=== PATIENT | male | born 1945 | race Hispanic/Latino ===

== ENCOUNTER 2019-01-04 09:16 | Emergency (ER) | payer SELFPAY ==
[~2019-01-04] VITALS: Ht 169.4 cm; Wt 75.0 kg
[~2019-01-04 09:16] MED LIST: BP MED
[2019-01-04] MEDS ORDERED: ATORVASTATIN CA80 MG PO (10:12)
[2019-01-04] MEDS ORDERED: LISINOP/HCTZ1 TA2 PO (10:12)
[2019-01-04] MEDS ORDERED: MEDDOSEPAK PO (10:52)
[2019-01-04] MEDS ORDERED: DICLOFENAC50 MG PO (10:52)
[2019-01-04 11:05] VITALS: BP 128/77
== END 2019-01-04 11:05 | disposition home or self-care (01) | DRG 556 ==
LOC: ED 09:16
DX: M25.531 Pain in right wrist (principal); I10 Essential (primary) hypertension

== ENCOUNTER 2019-04-18 17:22 | Emergency (ER) | payer MEDICARE ==
[~2019-04-18] VITALS: Ht 167.6 cm; Wt 86.0 kg
[~2019-04-18 17:22] MED LIST changes: +ATORVASTATIN CA80 MG PO; +DICLOFENAC50 MG PO; +LISINOP/HCTZ1 TA2 PO; +MEDDOSEPAK PO
[2019-04-18] MEDS ORDERED: KEFLEX500 M1 PO (18:24)
[2019-04-18 19:10] VITALS: BP 146/74
== END 2019-04-18 19:10 | disposition home or self-care (01) ==
LOC: ED 17:22
DX: L03.115 Cellulitis of right lower limb (principal); I10 Essential (primary) hypertension

== ENCOUNTER 2019-04-20 11:54 | Emergency (ER) | payer MEDICARE ==
[~2019-04-20] VITALS: Ht 167.6 cm; Wt 86.0 kg
[~2019-04-20 11:54] MED LIST changes: +KEFLEX500 M1 PO
[2019-04-20 13:03] VITALS: BP 127/75
== END 2019-04-20 13:03 | disposition home or self-care (01) ==
LOC: ED 11:54
DX: L03.115 Cellulitis of right lower limb (principal); I10 Essential (primary) hypertension

== ENCOUNTER 2021-12-06 15:42 | Inpatient (IN) | payer MEDICARE ==
[~2021-12-06] VITALS: Ht 167.6 cm; Wt 75.0 kg
[2021-12-06 16:02] VITALS: BP 121/69
[2021-12-06 16:38] LABS: HEMOGLOBIN 13.4 g/dl (14.0-18.0); IMMATURE GRANULOCYTES 1.3 % (0.0-5.0); MEAN CELL VOLUME 89.2 fL CALC (80.0-100.0); MEAN CORPUSCULAR HGB 28.5 pG CALC (26.0-32.0); MEAN CORPUSCULAR HGB CONC 31.9 g/dL CAL (32.0-36.0); NEUT# 20.08 thou/uL (1.82-7.42); RED BLOOD COUNT 4.71 mill/uL (4.70-6.10); RED CELL DISTRI WIDTH 15.4 % (11.5-15.5)
[2021-12-06 16:42] LABS: ALBUMIN 3.2 g/dL (3.2-5.0); BILIRUBIN, TOTAL 0.4 mg/dL (0.0-1.4); POTASSIUM 3.8 mmol/l (3.5-5.1); TOTAL PROTEIN 6.2 g/dL (6.3-8.2)
[2021-12-06 17:04] VITALS: BP 95/52
[2021-12-06 17:30] VITALS: BP 95/49
[2021-12-06 18:01] VITALS: BP 118/57
[2021-12-06 18:30] VITALS: BP 130/75
[2021-12-06 19:51] VITALS: BP 111/62
[2021-12-07 04:34] VITALS: BP 103/50
[2021-12-07 05:18] LABS: HEMATOCRIT 38.5 % (39.0-50.0); HEMOGLOBIN 12.1 g/dl (14.0-18.0); MEAN CELL VOLUME 91.9 fL CALC (80.0-100.0); MEAN CORPUSCULAR HGB 28.9 pG CALC (26.0-32.0); MEAN CORPUSCULAR HGB CONC 31.4 g/dL CAL (32.0-36.0); RED BLOOD COUNT 4.19 mill/uL (4.70-6.10); RED CELL DISTRI WIDTH 15.5 % (11.5-15.5)
[2021-12-07 05:36] LABS: CREATININE 1.4 mg/dL (0.7-1.3); MAGNESIUM 2.4 mg/dL (1.6-2.3); POTASSIUM 4.1 mmol/l (3.5-5.1)
[2021-12-07 07:09] VITALS: BP 119/57
[2021-12-07 19:00] VITALS: BP 143/84
[2021-12-08 04:00] VITALS: BP 155/87
[2021-12-08 04:19] VITALS: BP 155/87
[2021-12-08 05:07] LABS: HEMATOCRIT 40.4 % (39.0-50.0); HEMOGLOBIN 12.6 g/dl (14.0-18.0); IMMATURE GRANULOCYTES 1.4 % (0.0-5.0); MEAN CELL VOLUME 91.8 fL CALC (80.0-100.0); MEAN CORPUSCULAR HGB 28.6 pG CALC (26.0-32.0); MEAN CORPUSCULAR HGB CONC 31.2 g/dL CAL (32.0-36.0); NEUT# 14.92 thou/uL (1.82-7.42); RED BLOOD COUNT 4.4 mill/uL (4.70-6.10); RED CELL DISTRI WIDTH 15.5 % (11.5-15.5)
[2021-12-08 05:21] LABS: ALBUMIN 2.7 g/dL (3.2-5.0); ALKALINE PHOSPHATASE 88 u/l (38-126); ANION GAP 12 (6-22 (CALC)); BUN 34 mg/dL (8-23); BUN/CREATININE RATIO 31 (12-20 (CALC)); CARBON DIOXIDE 22 mmol/l (22-30); CHLORIDE 112 mmol/l (95-108); CREATININE 1.1 mg/dL (0.7-1.3); GFR > 60 ML/MIN (>=60 (CALC)); GFR FOR AFR.AMER. > 60 ML/MIN (>=60 (CALC)); MAGNESIUM 2.3 mg/dL (1.6-2.3); POTASSIUM 4.8 mmol/l (3.5-5.1); SGOT/AST 18 u/l (19-48); SODIUM 141 mmol/l (137-146); TOTAL PROTEIN 5.3 g/dL (6.3-8.2)
[2021-12-08 05:25] LABS: BILIRUBIN, TOTAL 0.2 mg/dL (0.0-1.4)
[2021-12-08 06:56] VITALS: BP 147/86
[2021-12-08 14:16] VITALS: BP 112/68
[2021-12-08 19:06] VITALS: BP 141/65
[2021-12-09 04:41] VITALS: BP 172/98
[2021-12-09 05:00] VITALS: BP 163/85
[2021-12-09 05:40] LABS: HEMATOCRIT 42.2 % (39.0-50.0); HEMOGLOBIN 13.2 g/dl (14.0-18.0); MEAN CELL VOLUME 91.5 fL CALC (80.0-100.0); MEAN CORPUSCULAR HGB 28.6 pG CALC (26.0-32.0); MEAN CORPUSCULAR HGB CONC 31.3 g/dL CAL (32.0-36.0); RED BLOOD COUNT 4.61 mill/uL (4.70-6.10); RED CELL DISTRI WIDTH 15.6 % (11.5-15.5)
[2021-12-09 06:07] LABS: ANION GAP 11 (6-22 (CALC)); BUN 30 mg/dL (8-23); BUN/CREATININE RATIO 28 (12-20 (CALC)); CARBON DIOXIDE 24 mmol/l (22-30); CHLORIDE 109 mmol/l (95-108); CREATININE 1.1 mg/dL (0.7-1.3); GFR > 60 ML/MIN (>=60 (CALC)); GFR FOR AFR.AMER. > 60 ML/MIN (>=60 (CALC)); MAGNESIUM 2.1 mg/dL (1.6-2.3); POTASSIUM 4.7 mmol/l (3.5-5.1); SODIUM 140 mmol/l (137-146)
[2021-12-09 06:24] VITALS: BP 151/80
[2021-12-09 16:44] VITALS: BP 174/81
[2021-12-09 19:23] VITALS: BP 149/78
[2021-12-10 04:22] VITALS: BP 158/77
[2021-12-10 05:35] LABS: HEMATOCRIT 45.2 % (39.0-50.0); MEAN CELL VOLUME 91.9 fL CALC (80.0-100.0); MEAN CORPUSCULAR HGB 28.5 pG CALC (26.0-32.0); RED BLOOD COUNT 4.92 mill/uL (4.70-6.10); RED CELL DISTRI WIDTH 15.3 % (11.5-15.5)
[2021-12-10 05:59] LABS: ANION GAP 11 (6-22 (CALC)); BUN 26 mg/dL (8-23); BUN/CREATININE RATIO 22 (12-20 (CALC)); CARBON DIOXIDE 28 mmol/l (22-30); CHLORIDE 103 mmol/l (95-108); CREATININE 1.2 mg/dL (0.7-1.3); GFR 59 ML/MIN (>=60 (CALC)); GFR FOR AFR.AMER. > 60 ML/MIN (>=60 (CALC)); MAGNESIUM 2.1 mg/dL (1.6-2.3); POTASSIUM 4.2 mmol/l (3.5-5.1); SODIUM 138 mmol/l (137-146)
[2021-12-10 06:26] VITALS: BP 148/78
[2021-12-10 08:00] VITALS: BP 148/78
[2021-12-10 09:17] LABS: HEMATOCRIT 45.1 % (39.0-50.0); HEMOGLOBIN 13.8 g/dl (14.0-18.0); IMMATURE GRANULOCYTES 4.2 % (0.0-5.0); MEAN CELL VOLUME 91.5 fL CALC (80.0-100.0); MEAN CORPUSCULAR HGB CONC 30.6 g/dL CAL (32.0-36.0); NEUT# 15.74 thou/uL (1.82-7.42); RED BLOOD COUNT 4.93 mill/uL (4.70-6.10); RED CELL DISTRI WIDTH 15.3 % (11.5-15.5)
[2021-12-10 14:47] VITALS: BP 126/72
[2021-12-10 16:00] VITALS: BP 126/72
[2021-12-10 19:22] VITALS: BP 148/91
[2021-12-11] VITALS (7 sets, daily range): BP systolic 111–148; BP diastolic 63–87
[2021-12-11 05:10] LABS: HEMATOCRIT 44.6 % (39.0-50.0); HEMOGLOBIN 13.8 g/dl (14.0-18.0); MEAN CELL VOLUME 91.8 fL CALC (80.0-100.0); MEAN CORPUSCULAR HGB 28.4 pG CALC (26.0-32.0); MEAN CORPUSCULAR HGB CONC 30.9 g/dL CAL (32.0-36.0); RED BLOOD COUNT 4.86 mill/uL (4.70-6.10); RED CELL DISTRI WIDTH 15.2 % (11.5-15.5)
[2021-12-11 05:33] LABS: BUN 24 mg/dL (8-23); BUN/CREATININE RATIO 23 (12-20 (CALC)); CARBON DIOXIDE 25 mmol/l (22-30); CHLORIDE 102 mmol/l (95-108); GFR > 60 ML/MIN (>=60 (CALC)); GFR FOR AFR.AMER. > 60 ML/MIN (>=60 (CALC)); MAGNESIUM 2.2 mg/dL (1.6-2.3); SODIUM 138 mmol/l (137-146)
[2021-12-11 05:36] LABS: ANION GAP 16 (6-22 (CALC)); POTASSIUM 4.6 mmol/l (3.5-5.1)
[2021-12-12 04:00] VITALS: BP 132/63
[2021-12-12 04:12] VITALS: BP 132/63
[2021-12-12 05:29] LABS: HEMATOCRIT 45.7 % (39.0-50.0); HEMOGLOBIN 14.1 g/dl (14.0-18.0); MEAN CELL VOLUME 93.3 fL CALC (80.0-100.0); MEAN CORPUSCULAR HGB 28.8 pG CALC (26.0-32.0); MEAN CORPUSCULAR HGB CONC 30.9 g/dL CAL (32.0-36.0); RED BLOOD COUNT 4.9 mill/uL (4.70-6.10); RED CELL DISTRI WIDTH 14.9 % (11.5-15.5)
[2021-12-12 05:39] LABS: ANION GAP 16 (6-22 (CALC)); BUN 29 mg/dL (8-23); BUN/CREATININE RATIO 25 (12-20 (CALC)); CARBON DIOXIDE 27 mmol/l (22-30); CHLORIDE 102 mmol/l (95-108); CREATININE 1.2 mg/dL (0.7-1.3); GFR 59 ML/MIN (>=60 (CALC)); GFR FOR AFR.AMER. > 60 ML/MIN (>=60 (CALC)); MAGNESIUM 2.4 mg/dL (1.6-2.3); POTASSIUM 4.7 mmol/l (3.5-5.1); SODIUM 140 mmol/l (137-146)
[2021-12-12 06:52] VITALS: BP 138/55
[2021-12-12 08:40] VITALS: BP 138/55
[2021-12-12 09:57] VITALS: BP 138/55
[2021-12-12] MEDS ORDERED: LEVAQUIN750 M1 PO (12:04)
[2021-12-12] MEDS ORDERED: LINEZOLID600 MG PO (12:04)
[2021-12-12] MEDS ORDERED: LORTAB 5/3255 MG PO (12:05)
[2021-12-12] MEDS ORDERED: SILVADENE1 % EX (12:05)
== END 2021-12-12 15:28 | disposition home health service (06) | DRG 603 ==
LOC: ED 15:42 → ED-I 17:10 → MS2 18:05 → ED 18:05 → MS2 12-09 07:38
PROVIDERS: Hospitalist; Nurse Practitioner; ADMIT Internal Medicine; ATTEND Internal Medicine
PROC: 3E02340 Introduction of Influenza Vaccine into Muscle, Percutaneous Approach (ICD-10-PCS; principal; 2021-12-10)
PROC: 0HDKXZZ Extraction of Right Lower Leg Skin, External Approach (ICD-10-PCS; 2021-12-10)
DX: L03.115 Cellulitis of right lower limb (principal); N17.9 Acute kidney failure, unspecified; T24.201A Burn of second degree of unspecified site of right lower limb, except ankle and foot, initial encounter; I10 Essential (primary) hypertension; L02.425 Furuncle of right lower limb; R73.9 Hyperglycemia, unspecified; E78.5 Hyperlipidemia, unspecified; X12.XXXA Contact with other hot fluids, initial encounter; Z91.14 Patient's other noncompliance with medication regimen; Z23 Encounter for immunization; Z20.822 Contact with and (suspected) exposure to COVID-19
CPT/HCPCS: J0692; Q3014

== ENCOUNTER 2021-12-31 13:01 | Inpatient (IN) | payer MEDICARE ==
[~2021-12-31] VITALS: Ht 167.6 cm; Wt 81.8 kg
[2021-12-31] VITALS (8 sets, daily range): BP systolic 130–163; BP diastolic 69–125
[~2021-12-31 13:01] MED LIST changes: +LEVAQUIN750 M1 PO; +LINEZOLID600 MG PO; +LORTAB 5/3255 MG PO; +SILVADENE1 % EX
[2021-12-31 14:16] LABS: ALKALINE PHOSPHATASE 107 u/l (38-126); ANION GAP 15 (6-22 (CALC)); BUN 44 mg/dL (8-23); BUN/CREATININE RATIO 35 (12-20 (CALC)); CARBON DIOXIDE 22 mmol/l (22-30); CHLORIDE 107 mmol/l (95-108); CREATININE 1.2 mg/dL (0.7-1.3); GFR FOR AFR.AMER. > 60 ML/MIN (>=60 (CALC)); GFR OTHER RACES 59 ML/MIN (>=60 (CALC)); POTASSIUM 4.4 mmol/l (3.5-5.1); SODIUM 140 mmol/l (137-146)
[2021-12-31 14:17] LABS: ALBUMIN 3.9 g/dL (3.2-5.0); BILIRUBIN, TOTAL 0.3 mg/dL (0.0-1.4); SGOT/AST 32 u/l (19-48); TOTAL PROTEIN 7.2 g/dL (6.3-8.2)
[2021-12-31 14:31] LABS: MEAN CELL VOLUME 91.6 fL CALC (80.0-100.0); MEAN CORPUSCULAR HGB 28.5 pG CALC (26.0-32.0); MEAN CORPUSCULAR HGB CONC 31.1 g/dL CAL (32.0-36.0); NEUT# 12.24 thou/uL (1.82-7.42); RED BLOOD COUNT 4.18 mill/uL (4.70-6.10); RED CELL DISTRI WIDTH 14.3 % (11.5-15.5)
[2021-12-31 14:47] LABS: HEMATOCRIT 38.3 % (39.0-50.0); HEMOGLOBIN 11.9 g/dl (14.0-18.0); IMMATURE GRANULOCYTES 6.4 % (0.0-5.0)
[2022-01-01 04:10] VITALS: BP 129/64
[2022-01-01 04:30] LABS: HEMATOCRIT 35.4 % (39.0-50.0); HEMOGLOBIN 10.8 g/dl (14.0-18.0); IMMATURE GRANULOCYTES 5.1 % (0.0-5.0); MEAN CELL VOLUME 91.7 fL CALC (80.0-100.0); MEAN CORPUSCULAR HGB CONC 30.5 g/dL CAL (32.0-36.0); NEUT# 10.61 thou/uL (1.82-7.42); RED BLOOD COUNT 3.86 mill/uL (4.70-6.10); RED CELL DISTRI WIDTH 14.5 % (11.5-15.5)
[2022-01-01 04:48] LABS: ANION GAP 13 (6-22 (CALC)); BUN 36 mg/dL (8-23); BUN/CREATININE RATIO 30 (12-20 (CALC)); CARBON DIOXIDE 22 mmol/l (22-30); CHLORIDE 110 mmol/l (95-108); CREATININE 1.2 mg/dL (0.7-1.3); GFR FOR AFR.AMER. > 60 ML/MIN (>=60 (CALC)); GFR OTHER RACES 59 ML/MIN (>=60 (CALC)); POTASSIUM 4.6 mmol/l (3.5-5.1); SODIUM 140 mmol/l (137-146)
[2022-01-01 04:52] LABS: MAGNESIUM 1.7 mg/dL (1.6-2.3)
[2022-01-01 06:43] VITALS: BP 123/54
[2022-01-01 14:42] VITALS: BP 120/55
[2022-01-01 19:30] VITALS: BP 144/73
[2022-01-02 04:06] VITALS: BP 127/59
[2022-01-02 06:17] LABS: HEMATOCRIT 35.9 % (39.0-50.0); IMMATURE GRANULOCYTES 3.6 % (0.0-5.0); MEAN CELL VOLUME 91.8 fL CALC (80.0-100.0); MEAN CORPUSCULAR HGB 28.1 pG CALC (26.0-32.0); MEAN CORPUSCULAR HGB CONC 30.6 g/dL CAL (32.0-36.0); NEUT# 6.65 thou/uL (1.82-7.42); RED BLOOD COUNT 3.91 mill/uL (4.70-6.10); RED CELL DISTRI WIDTH 14.9 % (11.5-15.5)
[2022-01-02 06:47] LABS: BUN 25 mg/dL (8-23); CARBON DIOXIDE 25 mmol/l (22-30); CHLORIDE 111 mmol/l (95-108); CREATININE 1.2 mg/dL (0.7-1.3); GFR FOR AFR.AMER. > 60 ML/MIN (>=60 (CALC)); GFR OTHER RACES 59 ML/MIN (>=60 (CALC)); SODIUM 141 mmol/l (137-146)
[2022-01-02 07:26] VITALS: BP 134/60
[2022-01-02 10:21] VITALS: BP 134/75
[2022-01-02 17:07] VITALS: BP 132/63
[2022-01-02 19:27] VITALS: BP 129/65
[2022-01-02 21:19] VITALS: BP 129/65
[2022-01-03 03:32] VITALS: BP 110/61
[2022-01-03 05:54] LABS: HEMATOCRIT 35.3 % (39.0-50.0); HEMOGLOBIN 11.1 g/dl (14.0-18.0); IMMATURE GRANULOCYTES 1.5 % (0.0-5.0); MEAN CELL VOLUME 91.5 fL CALC (80.0-100.0); MEAN CORPUSCULAR HGB 28.8 pG CALC (26.0-32.0); MEAN CORPUSCULAR HGB CONC 31.4 g/dL CAL (32.0-36.0); NEUT# 6.05 thou/uL (1.82-7.42); RED BLOOD COUNT 3.86 mill/uL (4.70-6.10); RED CELL DISTRI WIDTH 14.8 % (11.5-15.5)
[2022-01-03 06:06] LABS: ALBUMIN 2.9 g/dL (3.2-5.0); ALKALINE PHOSPHATASE 67 u/l (38-126); ANION GAP 8 (6-22 (CALC)); BUN 19 mg/dL (8-23); BUN/CREATININE RATIO 16 (12-20 (CALC)); CARBON DIOXIDE 23 mmol/l (22-30); CHLORIDE 113 mmol/l (95-108); CREATININE 1.2 mg/dL (0.7-1.3); GFR FOR AFR.AMER. > 60 ML/MIN (>=60 (CALC)); GFR OTHER RACES 59 ML/MIN (>=60 (CALC)); MAGNESIUM 1.9 mg/dL (1.6-2.3); POTASSIUM 4.1 mmol/l (3.5-5.1); SGOT/AST 22 u/l (19-48); SODIUM 140 mmol/l (137-146)
[2022-01-03 06:08] LABS: BILIRUBIN, TOTAL 0.1 mg/dL (0.0-1.4); TOTAL PROTEIN 5.6 g/dL (6.3-8.2)
[2022-01-03 07:34] VITALS: BP 142/57
[2022-01-03 09:38] VITALS: BP 142/57
[2022-01-03] MEDS ORDERED: BACTRIM DS1 TAB PO (11:00)
== END 2022-01-03 14:40 | disposition home health service (06) | DRG 603 ==
LOC: ED 13:01 → ED-I 14:40 → ED 15:06 → MS2 15:07
PROVIDERS: Nurse Practitioner; ADMIT Internal Medicine; ATTEND Internal Medicine
DX: L03.115 Cellulitis of right lower limb (principal); N17.9 Acute kidney failure, unspecified; I10 Essential (primary) hypertension; E78.5 Hyperlipidemia, unspecified; E11.9 Type 2 diabetes mellitus without complications; B95.62 Methicillin resistant Staphylococcus aureus infection as the cause of diseases classified elsewhere; Z91.14 Patient's other noncompliance with medication regimen; Z20.822 Contact with and (suspected) exposure to COVID-19
CPT/HCPCS: J0692; J3370